=== PATIENT | male | born 1960 | race Caucasian/White ===

== ENCOUNTER 2023-01-27 13:01 | Inpatient (IN) | payer BC, SELFPAY ==
[2023-01-27] VITALS (14 sets, daily range): BP systolic 77–98; BP diastolic 46–74
[~2023-01-27] VITALS: Ht 172.7 cm; Wt 109.6 kg
[2023-01-27] MEDS ORDERED: methylPREDNISolone sod succ 125mg/2ml vial IV ONE (13:25)
[2023-01-27] MEDS ORDERED: aspirin 81mg tab.chew PO ONE (13:25)
[2023-01-27 13:40] LABS: BASOPHILS % (AUTO) 0.4 % (0-1); EOSINOPHILS # (AUTO) 0.1 X10'3 (0-0.9); EOSINOPHILS % (AUTO) 3.5 % (0-6); HEMATOCRIT 35.4 % (42.0-52.0); HEMOGLOBIN 12.3 g/dl (14.0-17.9); LYMPHOCYTES # (AUTO) 0.2 X10'3 (1.1-4.8); LYMPHOCYTES % (AUTO) 8.4 % (21-51); MEAN CORPUSCULAR HEMOGLOBIN 34.7 PG (27.0-31.0); MEAN CORPUSCULAR HGB CONC 34.7 g/dL (33.0-36.5); MEAN PLATELET VOLUME 7.7 FL (7.4-10.4); NEUTROPHILS # (AUTO) 1.6 X10'3 (1.8-7.7); NEUTROPHILS % (AUTO) 86.7 % (42-75); PLATELET COUNT 220 X10'3 (140-440); RED BLOOD COUNT 3.54 X10'6 (4.70-6.10); RED CELL DISTRIBUTION WIDTH 12.3 % (11.5-14.5); WHITE BLOOD COUNT 1.9 X10'3 (4.5-11.0)
[2023-01-27 14:00] LABS: ALANINE AMINOTRANSFERASE 23 U/L (12-78); ALBUMIN 2.8 G/DL (3.4-5.0); ALBUMIN/GLOBULIN RATIO 0.6 (1.1-1.5); ALKALINE PHOSPHATASE 124 IU/L (46-116); ANION GAP 18 (8-16); ASPARTATE AMINO TRANSFERASE 31 U/L (10-37); BILIRUBIN,TOTAL 0.7 MG/DL (0.1-1.0); BLOOD UREA NITROGEN 42 MG/DL (7-18); BUN/CREATININE RATIO 13.1 (10.0-20.0); CALCIUM 8.5 MG/DL (8.5-10.1); CHLORIDE 94 MMOL/L (99-107); CREATININE 3.21 MG/DL (0.60-1.10); GLUCOSE 91 MG/DL (70-104); POTASSIUM 3.4 MMOL/L (3.5-5.1); SODIUM 131 MMOL/L (135-145); TOTAL CARBON DIOXIDE 18.6 MMOL/L (24-32); TOTAL PROTEIN 7.3 G/DL (6.4-8.2); eGFR 20 ML/MIN
[2023-01-27 14:05] LABS: PLATELET ESTIMATE NORMAL; TOTAL CELLS COUNTED 100
[2023-01-27 14:06] LABS: D-DIMER 32.57 MG/L FEU (0-0.50); GIANT PLATELET FEW; LARGE PLATELETS FEW
[2023-01-27] MEDS ORDERED: ipratropium/albuterol 3ml nebule NEB ONE (14:10)
[2023-01-27] MEDS ORDERED: azithromycin/NS 500mg/250ml 250 ML IV ONE (14:10)
[2023-01-27] MEDS ORDERED: normal saline 1000ML IV soln IV ONE (14:10)
[2023-01-27 14:23] LABS: ABG BASE EXCESS -4.1 mmol/L (-2.0-2.0); ABG OXYGEN SATURATION 97.9 % (94-97); ABG PCO2 (T) 22.6 mmHg (35.0-48.0); ABG PO2 (T) 105.6 mmHg (75.0-100.0); ALLEN'S TEST POSITIVE; FCOHb 0.3 % (0.0-3.9); FLOW 2 L/min; FMetHb 0.3 % (0.0-1.5); FO2Hb 97.3 % (94-97); PATIENT TEMPERATURE 37.4; TOTAL HEMOGLOBIN 13.2 G/dl (14.0-17.9)
[2023-01-27] MEDS: CefTRIAXone 2gm/D5W 50ml BAG 50 ML IV ONE ×2 (14:55→15:15)
[2023-01-27 15:43] LABS: CLARITY,URINE CLOUDY (Clear); COLOR,URINE YELLOW (Yellow); GLUCOSE, URINE NEGATIVE (Neg); KETONES,URINE NEGATIVE (Neg); LEUKOCYTE ESTERASE ,URINE MODERATE (Neg); NITRITES, URINE NEGATIVE (Neg); OCCULT BLOOD,URINE LARGE (Neg); PROTEIN,URINE 30 mg/dl (Neg)
[2023-01-27 15:45] LABS: UA COLLECTION TYPE URINAL
[2023-01-27] MEDS ORDERED: magnesium hydroxide 30ml (MOM) UD suspension PO PRN (15:55)
[2023-01-27] MEDS ORDERED: potassium Cl 20 mEq SR tablet PO PRN (15:55)
[2023-01-27] MEDS ORDERED: ondansetron 4mg rapidly disintigrating tab PO PRN (15:55)
[2023-01-27] MEDS ORDERED: HYDROmorphone inj. 0.5 MG/0.5 ML DISP.SYRIN IV PRN (15:55)
[2023-01-27] MEDS ORDERED: magnesium Cl slow-release 64mg tablet PO PRN (15:55)
[2023-01-27] MEDS ORDERED: HYDROcodone/acetaminophen 5mg/325mg tablet PO PRN (15:55)
[2023-01-27] MEDS ORDERED: magnesium 2GM in 50ml NS 50 ML IV PRN (15:55)
[2023-01-27] MEDS ORDERED: HYDROmorphone/PF 0.2 MG/ML SYRINGE IV PRN (15:55)
[2023-01-27] MEDS ORDERED: PERFLUTREN PROTEIN-A MICROSPHR (Optison) 0.22 MG/ML 3ML VIAL IV ONE (15:55)
[2023-01-27] MEDS ORDERED: ondansetron/PF 4mg/2ml inj IV PRN ×2 (15:55→18:40)
[2023-01-27] MEDS ORDERED: potassium Cl 40MEQ/1/2NS 520ml 520 ML IV PRN (15:55)
[2023-01-27] MEDS ORDERED: magnesium 4gm in 100ml NS 100 ML IV PRN (15:55)
[2023-01-27] MEDS ORDERED: HYDROcodone/acetaminophen 10/325mg tab PO PRN (15:55)
[2023-01-27] MEDS ORDERED: acetaminophen 650mg rectal suppository RC PRN (15:55)
[2023-01-27] MEDS ORDERED: mag hydrox/Alum hydrox/simeth 30ml oral suspension PO PRN (15:55)
[2023-01-27] MEDS ORDERED: bisacodyl 10mg suppository rectal RC PRN (15:55)
[2023-01-27] MEDS ORDERED: acetaminophen 325mg tablet PO PRN ×2 (15:55)
[2023-01-27 16:01] LABS: BACTERIA,URINE 2+ /HPF (Neg); MUCUS STRANDS FEW /LPF (Neg); SQUAMOUS EPITHELIAL CELL,UR FEW /LPF (FEW); TRANSITIONAL EPI CELLS,URINE FEW /HPF; WBC,URINE 50-100 /HPF (0-4)
[2023-01-27 16:02] LABS: AMORPHOUS URATES 1+
[2023-01-27] MEDS ORDERED: AMLO2.5T2 PO (16:47)
[2023-01-27] MEDS ORDERED: LISI20TA28 PO (16:47)
[2023-01-27] MEDS ORDERED: IBUP-1985 PO (16:52)
[2023-01-27] MEDS: normal saline 1000ml 1,000 ML IV SCH ×2 (17:30→23:55)
[2023-01-27] MEDS ORDERED: proCHLORperazine 10 MG/2 ml inj IV PRN (18:40)
[2023-01-27] MEDS ORDERED: ringers solution, lacted 1,000 ML IV SCH (18:40)
[2023-01-27] MEDS ORDERED: morphine 2 MG/ML inj. syringe IV PRN (18:40)
[2023-01-27] MEDS ORDERED: morphine 4 MG/ML inj SYRINge IV PRN (18:40)
[2023-01-27] MEDS ORDERED: meperidine/PF 25mg/ml syringe IV PRN ×3 (18:40)
[2023-01-27] MEDS ORDERED: iohexol 300 MG/1 ML 50ml polymer ONE (19:05)
[2023-01-27] MEDS ORDERED: midazolam 1 mg/ML 2ml injection ONE (19:38)
[2023-01-27] MEDS ORDERED: fentaNYL/PF 50MCG/1 ML 2ML syringe ONE (19:38)
[2023-01-27] MEDS ORDERED: LIDOcaine 2% (20mg/ml) 5ml vial ONE (19:47)
[2023-01-27] MEDS: heparin, porcine 5000 units/ml vial SQ SCH (20:00)
[2023-01-27] MEDS: K and/or MAG REPLACEMENT MC SCH (20:00)
[2023-01-27] MEDS: docusate sod 100mg capsule PO SCH (20:00)
[2023-01-27] MEDS ORDERED: ePHEDrine 50MG/ML INJ. ONE (20:08)
[2023-01-27] MEDS ORDERED: propofol inj 20 ML IV ONE (20:08)
--- NOTE | 2023-01-27 20:25 | NUR ---
Received from OR via HOSPITAL BED, accompanied by Anesthesiologist DR SOL and report given by Anesthesiologist. PT IS GROGGY BUT RESPONDS TO VERBAL STIMULI AND FOLLOWS COMMANDS. PT PLACED ON BEDSIDE MONITOR, PT IS HYPOTENSIVE WITH SBP IN 70'S, MD IS AWARE. FLUIDS ARE INFUSING TO GRAVITY, ORDER RECEIVED TO GIVE MINIMUM OF 500ML BOLUS IF SBP NOT ABOVE 85 GIVE THE 2ND 500ML. PT IS IN SR WITH RATE IN MID 80'S. PT HAS 20G PIV TO RT AC. PT DENIES PAIN AT THIS TIME. WILL CONTINUE TO ASSESS
[2023-01-27] MEDS ORDERED: temazepam 15mg capsule PO PRN (21:00)
--- NOTE | 2023-01-27 21:45 | NUR ---
PT ARRIVED TO 4016 ACCOMPANIED BY TWO RECOVERY RNS. PT IS AXO ON 2L O2. CONNECTED TO POST OP VITAL. RECEIVED REPORT FROM DOUGLAS COLBY PRIOR TO PT'S ARRIVAL.
--- NOTE | 2023-01-27 21:53 | NUR ---
PATIENT HAS MET ALL CRITERIA FOR TRANSFER TO THE ORTHO FLOOR. VSS. BED LOW, CALL LIGHT PRESENT AND 2 RAILS UP. OPAL RN PRESENT TO ACCEPT CARE OF PATIENT AND REPORT HAS BEEN CALLED. ALL QUESTIONS ANSWERED TO ACCEPTING RN
[2023-01-28 00:30] VITALS: BP 80/54
[2023-01-28] MEDS: potassium Cl 20 mEq SR tablet PO PRN (01:16)
[2023-01-28 01:27] VITALS: BP 94/62
[2023-01-28 06:00] VITALS: BP 94/65
[2023-01-28 06:16] LABS: BASOPHILS % (AUTO) 0.1 % (0-1); EOSINOPHILS % (AUTO) 0 % (0-6); HEMOGLOBIN 11.1 g/dl (14.0-17.9); LYMPHOCYTES # (AUTO) 0.3 X10'3 (1.1-4.8); MEAN CORPUSCULAR HGB CONC 33.8 g/dL (33.0-36.5); MEAN CORPUSCULAR VOLUME 100.5 FL (78-98); MEAN PLATELET VOLUME 8.4 FL (7.4-10.4); MONOCYTES # (AUTO) 0.4 X10'3 (0-0.9); MONOCYTES % (AUTO) 2.8 % (2-12); NEUTROPHILS # (AUTO) 12.5 X10'3 (1.8-7.7); NEUTROPHILS % (AUTO) 95.1 % (42-75); PLATELET COUNT 196 X10'3 (140-440); RED BLOOD COUNT 3.28 X10'6 (4.70-6.10); RED CELL DISTRIBUTION WIDTH 12.7 % (11.5-14.5); WHITE BLOOD COUNT 13.2 X10'3 (4.5-11.0)
--- NOTE | 2023-01-28 06:30 | NUR ---
Patient in room ORTHO 4016. I have received report from Becky COLE and had the opportunity to ask questions and assume patient care.
[2023-01-28 06:35] LABS: ALANINE AMINOTRANSFERASE 23 U/L (12-78); ALBUMIN 2.2 G/DL (3.4-5.0); ALBUMIN/GLOBULIN RATIO 0.5 (1.1-1.5); ALKALINE PHOSPHATASE 66 IU/L (46-116); ANION GAP 13 (8-16); ASPARTATE AMINO TRANSFERASE 30 U/L (10-37); BILIRUBIN,TOTAL 0.4 MG/DL (0.1-1.0); BLOOD UREA NITROGEN 43 MG/DL (7-18); CALCIUM 7.4 MG/DL (8.5-10.1); CHLORIDE 104 MMOL/L (99-107); CREATININE 2.15 MG/DL (0.60-1.10); GLUCOSE 185 MG/DL (70-104); MAGNESIUM 1.8 MG/DL (1.5-2.4); POTASSIUM 3.9 MMOL/L (3.5-5.1); SODIUM 138 MMOL/L (135-145); TOTAL CARBON DIOXIDE 20.8 MMOL/L (24-32); TOTAL PROTEIN 6.3 G/DL (6.4-8.2); eGFR 31 ML/MIN
--- NOTE | 2023-01-28 06:37 | NUR ---
Problems reprioritized. Patient report given, questions answered & plan of care reviewed with JEFERSON [place].
[2023-01-28] MEDS: normal saline 1000ml 1,000 ML IV SCH ×2 (07:55→18:30)
[2023-01-28] MEDS: docusate sod 100mg capsule PO SCH ×2 (08:00→19:43)
[2023-01-28] MEDS: K and/or MAG REPLACEMENT MC SCH ×2 (08:00→20:00)
[2023-01-28] MEDS: heparin, porcine 5000 units/ml vial SQ SCH ×2 (08:35→19:44)
[2023-01-28] MEDS: CefTRIAXone 2gm/D5W 50ml BAG 50 ML IV SCH (10:13)
[2023-01-28 18:00] VITALS: BP 93/56
--- NOTE | 2023-01-28 18:10 | NUR ---
Problems reprioritized. Patient report given, questions answered & plan of care reviewed with Becky COLE.
--- NOTE | 2023-01-28 18:55 | NUR ---
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 no new findings added.
--- NOTE | 2023-01-28 19:23 | NUR ---
Patient in room ORTHO 4016. I have received report from DOUGLAS Atkinson and had the opportunity to ask questions and assume patient care.
[2023-01-28 22:00] VITALS: BP 93/58
[2023-01-29] MEDS: normal saline 1000ml 1,000 ML IV SCH ×5 (00:10→23:56)
--- NOTE | 2023-01-29 05:35 | NUR ---
Pt. Lowe in room 4017R GRAM NEGATIVE RODS POSITIVE BOTTLE(S): SEEN IN ANAEROBIC BOTTLE HOURS TO DETECT: 37.42 thanks, deisi [phone]. reported to Dr. Flanagan with call back.
[2023-01-29 06:00] VITALS: BP_SYST 101; BP_SYST 123; BP_DIAS 54; BP_DIAS 67
[2023-01-29 06:23] LABS: BASOPHILS % (AUTO) 0.2 % (0-1); EOSINOPHILS % (AUTO) 0 % (0-6); HEMATOCRIT 33.7 % (42.0-52.0); HEMOGLOBIN 11.5 g/dl (14.0-17.9); LYMPHOCYTES # (AUTO) 0.7 X10'3 (1.1-4.8); LYMPHOCYTES % (AUTO) 4.2 % (21-51); MEAN CORPUSCULAR VOLUME 99.9 FL (78-98); MEAN PLATELET VOLUME 8.5 FL (7.4-10.4); NEUTROPHILS # (AUTO) 14.9 X10'3 (1.8-7.7); NEUTROPHILS % (AUTO) 89.6 % (42-75); PLATELET COUNT 228 X10'3 (140-440); RED BLOOD COUNT 3.37 X10'6 (4.70-6.10); RED CELL DISTRIBUTION WIDTH 12.9 % (11.5-14.5); WHITE BLOOD COUNT 16.6 X10'3 (4.5-11.0)
--- NOTE | 2023-01-29 06:40 | NUR ---
Problems reprioritized. Patient report given, questions answered & plan of care reviewed with JEFERSON [place].
--- NOTE | 2023-01-29 06:41 | NUR ---
Patient in room ORTHO 4016. I have received report from Becky COLE and had the opportunity to ask questions and assume patient care.
[2023-01-29 06:42] LABS: ALANINE AMINOTRANSFERASE 27 U/L (12-78); ALBUMIN 2.3 G/DL (3.4-5.0); ALBUMIN/GLOBULIN RATIO 0.5 (1.1-1.5); ALKALINE PHOSPHATASE 70 IU/L (46-116); ANION GAP 10 (8-16); ASPARTATE AMINO TRANSFERASE 33 U/L (10-37); BILIRUBIN,TOTAL 0.3 MG/DL (0.1-1.0); BLOOD UREA NITROGEN 40 MG/DL (7-18); BUN/CREATININE RATIO 32.8 (10.0-20.0); CALCIUM 7.9 MG/DL (8.5-10.1); CHLORIDE 106 MMOL/L (99-107); CREATININE 1.22 MG/DL (0.60-1.10); GLUCOSE 142 MG/DL (70-104); MAGNESIUM 2.2 MG/DL (1.5-2.4); POTASSIUM 3.5 MMOL/L (3.5-5.1); SODIUM 139 MMOL/L (135-145); TOTAL CARBON DIOXIDE 23.1 MMOL/L (24-32); TOTAL PROTEIN 6.5 G/DL (6.4-8.2); eGFR 60 ML/MIN
--- NOTE | 2023-01-29 06:42 | NUR ---
Problems reprioritized. Patient report given, questions answered & plan of care reviewed with DOUGLAS Atkinson.
[2023-01-29] MEDS: CefTRIAXone 2gm/D5W 50ml BAG 50 ML IV SCH (07:51)
[2023-01-29] MEDS: K and/or MAG REPLACEMENT MC SCH ×2 (08:00→20:07)
[2023-01-29] MEDS: docusate sod 100mg capsule PO SCH ×2 (08:00→20:12)
[2023-01-29] MEDS: heparin, porcine 5000 units/ml vial SQ SCH ×2 (08:45→20:12)
[2023-01-29 09:51] VITALS: BP 118/80
[2023-01-29 10:00] VITALS: BP 104/61
[2023-01-29 11:30] VITALS: BP 124/80
[2023-01-29 18:00] VITALS: BP 105/67
--- NOTE | 2023-01-29 18:00 | NUR ---
I have reviewed and agree w/ interventions, assessments, and documentation by China Llamas LVN.
--- NOTE | 2023-01-29 18:17 | NUR ---
Problems reprioritized. Patient report given, questions answered & plan of care reviewed with Albina GOVEA.
--- NOTE | 2023-01-29 18:42 | NUR ---
Patient in room ORTHO 4016. I have received report from JEFERSON Mullen and had the opportunity to ask questions and assume patient care.
[2023-01-29 20:04] LABS: HBSAG SCREEN Negative (Negative); HEP B CORE AB, TOT Negative (Negative)
--- NOTE | 2023-01-29 20:50 | NUR ---
agree with assessment of JEFERSON Montemayor.
[2023-01-29 22:00] VITALS: BP 103/67
[2023-01-30 06:00] VITALS: BP 115/75
[2023-01-30 06:48] LABS: BASOPHILS % (AUTO) 0.2 % (0-1); EOSINOPHILS % (AUTO) 0.2 % (0-6); HEMATOCRIT 36.9 % (42.0-52.0); HEMOGLOBIN 12.2 g/dl (14.0-17.9); LYMPHOCYTES # (AUTO) 1.3 X10'3 (1.1-4.8); LYMPHOCYTES % (AUTO) 11.4 % (21-51); MEAN CORPUSCULAR HEMOGLOBIN 33.2 PG (27.0-31.0); MEAN CORPUSCULAR VOLUME 100.7 FL (78-98); MEAN PLATELET VOLUME 8.3 FL (7.4-10.4); MONOCYTES # (AUTO) 0.9 X10'3 (0-0.9); MONOCYTES % (AUTO) 8.5 % (2-12); NEUTROPHILS # (AUTO) 8.8 X10'3 (1.8-7.7); NEUTROPHILS % (AUTO) 79.7 % (42-75); PLATELET COUNT 225 X10'3 (140-440); RED BLOOD COUNT 3.67 X10'6 (4.70-6.10); RED CELL DISTRIBUTION WIDTH 13.3 % (11.5-14.5); WHITE BLOOD COUNT 11.1 X10'3 (4.5-11.0)
--- NOTE | 2023-01-30 06:55 | NUR ---
Patient in room ORTHO 4016. I have received report from JEFERSON Montemayor and had the opportunity to ask questions and assume patient care.
[2023-01-30 07:03] LABS: ALANINE AMINOTRANSFERASE 25 U/L (12-78); ALBUMIN 2.3 G/DL (3.4-5.0); ALBUMIN/GLOBULIN RATIO 0.6 (1.1-1.5); ALKALINE PHOSPHATASE 60 IU/L (46-116); ANION GAP 11 (8-16); ASPARTATE AMINO TRANSFERASE 24 U/L (10-37); BILIRUBIN,TOTAL 0.2 MG/DL (0.1-1.0); BLOOD UREA NITROGEN 30 MG/DL (7-18); BUN/CREATININE RATIO 35.3 (10.0-20.0); CALCIUM 8.2 MG/DL (8.5-10.1); CHLORIDE 111 MMOL/L (99-107); CREATININE 0.85 MG/DL (0.60-1.10); GLUCOSE 94 MG/DL (70-104); MAGNESIUM 2.1 MG/DL (1.5-2.4); POTASSIUM 3.4 MMOL/L (3.5-5.1); SODIUM 143 MMOL/L (135-145); TOTAL CARBON DIOXIDE 21.4 MMOL/L (24-32); TOTAL PROTEIN 6.1 G/DL (6.4-8.2); eGFR > 90 ML/MIN
[2023-01-30] MEDS: CefTRIAXone 2gm/D5W 50ml BAG 50 ML IV SCH (07:12)
[2023-01-30] MEDS: docusate sod 100mg capsule PO SCH (07:14)
[2023-01-30] MEDS: heparin, porcine 5000 units/ml vial SQ SCH (07:14)
[2023-01-30] MEDS: K and/or MAG REPLACEMENT MC SCH (08:00)
[2023-01-30 08:31] VITALS: BP 122/79
[2023-01-30] MEDS: potassium Cl 20 mEq SR tablet PO PRN (08:59)
[2023-01-30 10:00] VITALS: BP 130/75
[2023-01-30] MEDS: normal saline 1000ml 1,000 ML IV SCH (10:01)
[2023-01-30] MEDS ORDERED: levoFLOXACIN 500mg tablet PO SCH (11:00)
[2023-01-30] MEDS ORDERED: LEVO-65 PO (11:27)
--- NOTE | 2023-01-30 12:15 | NUR ---
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 assessment- see findings.
--- NOTE | 2023-01-30 12:16 | NUR ---
Patient discharge home. Discharge information was provided and review with patient whom verbalize understanding. 22G Peripheral IV was removed from left hand, cannula was intact. Staff assisted patient to vehicle with all belongings.
== END 2023-01-30 12:15 | disposition home or self-care (01) | DRG 853 ==
LOC: ER 13:02 → ED HOLD 15:59 → ORTHO 4S 21:40
PROVIDERS: ADMIT Family Medicine; ATTEND Family Medicine
PROC: 0T778DZ Dilation of Left Ureter with Intraluminal Device, Via Natural or Artificial Opening Endoscopic (ICD-10-PCS; 2023-01-27)
PROC: CB121ZZ Planar Nuclear Medicine Imaging of Lungs and Bronchi using Technetium 99m (Tc-99m) (ICD-10-PCS; principal; 2023-01-27 19:23)
DX: A41.59 Other Gram-negative sepsis (principal); I50.21 Acute systolic (congestive) heart failure; J96.01 Acute respiratory failure with hypoxia; N17.0 Acute kidney failure with tubular necrosis; E87.20 Acidosis, unspecified; E87.1 Hypo-osmolality and hyponatremia; N13.6 Pyonephrosis; N20.2 Calculus of kidney with calculus of ureter; E87.6 Hypokalemia; Z20.822 Contact with and (suspected) exposure to COVID-19; I11.0 Hypertensive heart disease with heart failure; R65.20 Severe sepsis without septic shock; Z72.0 Tobacco use; Z82.49 Family history of ischemic heart disease and other diseases of the circulatory system; Z87.11 Personal history of peptic ulcer disease; Z87.442 Personal history of urinary calculi
CPT/HCPCS: 93306; 99285; Z7506; 36415; 36600; 71045; 71250; 74176; 78582; 80053; 81001; 82803; 83605; 83735; 83880; 84145; 84484; 85007; 85018; 85025; 85379; 86704; 86705; 86706; 87040; 87077; 87081; 87088; 87186; 87340; 87635; 94640; 94760; A4615; A4618; A9539; A9540; C1769; C2617; C9803; G0378; J0456; J0696; J1644; J2250; J2704; J2930; J3010; J3490; J7030; Q9967